=== PATIENT | male | born 2000 | race Two or more races ===

== ENCOUNTER 2025-09-15 23:29 | Emergency (ER) | payer SELFPAY ==
[2025-09-15 23:31] VITALS: BMI 26.6
[2025-09-15 23:32] VITALS: BP 116/71; PULSE 68; RESP 19; TEMP 36.4; O2SAT 96
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
[2025-09-16 00:04] VITALS: RESP 16
== END 2025-09-16 00:05 ==
PROVIDERS: Emergency Provider Emergency Medicine
DX: Z02.89 Encounter for other administrative examinations (principal); Z04.1 Encounter for examination and observation following transport accident
CPT/HCPCS: 99281